=== PATIENT | female | born 1950 | race Caucasian/White ===

== ENCOUNTER → 2016-07-01 | Outpatient (CLI) | payer BC, OTHER ==
[~2016-07-01] MED LIST: AMITRIPTYLINE H25 M2 PO; APAP/CODEINE ELI5 M1 OR; APAP500 PO; BENTYL 10 MG CA10 M1 PO; CALCIUM 500+D1 EAC2 PO; EVISTA PO; FISH OIL 1,001000 M1 PO; IBUPROFEN 400400 M2 PO; IBUPROFEN 600600 M1 PO; IBUPROFEN200 M2 PO; LEVOTHROID; LEVOTHROID150 MC1 PO; LEVOTHYROXIN0.112 M1 PO; LIPITOR20 MG PO; LORTAB 5-325 M1 EACH PO; METHOCARBAMOL500 M1 PO; MIRAPEX; MIRAPEX0.25 MG PO; MULTIVITAMINS PO; NORCO 5-325 TA1 EACH PO; NORCO 7.5-3251 EACH PO; NORVASC10 MG PO; PHENERGAN 25 MG25 M1 PO; PROTONIX 20 MG20 M1 PO; TRAMADOL 50 MG50 MG PO; ULTRAM 50MG TAB50 MG PO; VITAMINC500 PO; ZOFRAN ODT8 MG PO; ZOFRAN4 MG PO; ZPAK PO
== END ==
LOC: RAD 10:28
DX: R06.02 Shortness of breath (principal)

== ENCOUNTER 2016-08-20 13:30 | Emergency (ER) | payer BC, OTHER ==
[~2016-08-20] VITALS: Ht 157.5 cm; Wt 90.7 kg
--- NOTE | ~2016-08-20 | EKG ---
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
--- NOTE | ~2016-08-20 | EKG ---
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
[2016-08-20 14:35] LABS: ABSOLUTE NEUTROPHILS 3.5 thou/uL (1.4-8.2); BASOPHILS 0.8 % (0.0-2.0); EOSINOPHILS 2.7 % (0.0-3.0); HEMATOCRIT 37.3 % (37.0-47.0); HEMOGLOBIN 12.6 gm/dL (12.0-15.0); LYMPHOCYTES 36.7 % (24.0-44.0); MCH 30.7 pg (26.0-34.0); MCHC 33.7 g/dL (28.0-37.0); MCV 91.2 fL (80.0-100.0); MONOCYTES 5.8 % (1.0-8.0); PLATELET COUNT 282 thou/uL (150-400); RBC 4.09 mil/uL (4.20-5.00); RDW 13.5 % (10.5-14.5); WBC 6.5 thou/uL (4.0-11.0)
[2016-08-20 14:39] LABS: MANUAL DIFF NO
[2016-08-20 14:44] LABS: ANION GAP 5 mmol/L (7-16); BUN 14 mg/dL (7-18); CALCIUM 9.3 mg/dL (8.5-10.1); CHLORIDE 106 mmol/L (98-107); CO2 30 mmol/L (21-32); CREATININE 0.8 mg/dL (0.6-1.3); GLUCOSE 101 mg/dL (70-99); POTASSIUM 4.4 mmol/L (3.5-5.1); SODIUM 141 mmol/L (136-145)
[2016-08-20 14:55] LABS: ALBUMIN 3.9 g/dL (3.4-5.0); ALKALINE PHOSPHATASE 113 U/L (46-116); MAGNESIUM 2.2 mg/dL (1.8-2.4); NT-PRO BRAIN NAT PEPTIDE 154 pg/mL (<300); SGOT 18 U/L (15-37); SGPT 22 U/L (30-65); TOTAL BILIRUBIN 0.2 mg/dL (<0.1-1.0); TOTAL PROTEIN 7.2 g/dL (6.4-8.2); TROPONIN-I < 0.04 ng/mL (<0.04-0.07)
== END 2016-08-20 16:22 | disposition home or self-care (01) ==
LOC: ER 13:30
PROVIDERS: Nurse Practitioner Family
DX: R07.9 Chest pain, unspecified (principal); I10 Essential (primary) hypertension; K58.8 Other irritable bowel syndrome; E78.5 Hyperlipidemia, unspecified; E03.9 Hypothyroidism, unspecified; K21.9 Gastro-esophageal reflux disease without esophagitis; G43.909 Migraine, unspecified, not intractable, without status migrainosus; Z88.8 Allergy status to other drugs, medicaments and biological substances; Z88.5 Allergy status to narcotic agent

== ENCOUNTER → 2017-03-24 | Outpatient (CLI) | payer OTHER | LOC: RAD 00:15 | DX: Z12.31 Encounter for screening mammogram for malignant neoplasm of breast (principal) ==

== ENCOUNTER → 2017-06-01 | Outpatient (CLI) | payer OTHER | LOC: RAD 12:21 | DX: M47.896 Other spondylosis, lumbar region (principal); M25.561 Pain in right knee ==

== ENCOUNTER → 2017-06-22 | Outpatient (CLI) | payer OTHER ==
[~2017-06-22] MED LIST changes: +CARAFATE 1 GM TA1 G1 PO; +FISH OIL 1,001000 M2 PO; +MELOXICAM15 MG PO; +MIRAPEX 0.250.25 M1 PO; +PEPCID20 MG PO; +PROTONIX40 MG PO; +RANITIDINE 150150 M1 PO; +TIROSINT112 MCG PO; +TYLENOL325 MG PO; +VENTOLIN HFA 1818 GM INH; +VITAMIN D31000 UNIT PO
== END ==
LOC: RAD 14:01
DX: R05 Cough (principal); R06.02 Shortness of breath

== ENCOUNTER 2017-07-11 09:17 | Emergency (ER) | payer OTHER ==
[~2017-07-11] VITALS: Ht 157.5 cm; Wt 92.5 kg
[~2017-07-11 09:17] MED LIST changes: -CARAFATE 1 GM TA1 G1 PO; -FISH OIL 1,001000 M2 PO; -MELOXICAM15 MG PO; -MIRAPEX 0.250.25 M1 PO; -PEPCID20 MG PO; -PROTONIX40 MG PO; -RANITIDINE 150150 M1 PO; -TIROSINT112 MCG PO; -TYLENOL325 MG PO; -VENTOLIN HFA 1818 GM INH; -VITAMIN D31000 UNIT PO
[2017-07-11 09:55] VITALS: BP 179/77
[2017-10-10] MEDS ORDERED: TIROSINT112 MCG PO (10:38)
[2017-10-10] MEDS ORDERED: MIRAPEX 0.250.25 M1 PO (10:39)
[2017-10-10] MEDS ORDERED: MELOXICAM15 MG PO (10:40)
[2017-10-10] MEDS ORDERED: VITAMIN D31000 UNIT PO (10:41)
[2017-10-10] MEDS ORDERED: FISH OIL 1,001000 M2 PO (10:41)
[2017-10-10] MEDS ORDERED: RANITIDINE 150150 M1 PO (10:43)
[2018-01-06] MEDS ORDERED: VENTOLIN HFA 1818 GM INH (11:12)
[2018-01-06] MEDS ORDERED: TYLENOL325 MG PO (11:13)
== END 2017-07-11 11:00 | disposition home or self-care (01) ==
LOC: ER 09:17
DX: M25.561 Pain in right knee (principal); I10 Essential (primary) hypertension; M19.90 Unspecified osteoarthritis, unspecified site; E78.5 Hyperlipidemia, unspecified; E03.9 Hypothyroidism, unspecified; G43.909 Migraine, unspecified, not intractable, without status migrainosus; Z90.710 Acquired absence of both cervix and uterus; Z90.49 Acquired absence of other specified parts of digestive tract; Z88.8 Allergy status to other drugs, medicaments and biological substances; Z88.5 Allergy status to narcotic agent

== ENCOUNTER → 2017-08-22 | Outpatient (CLI) | payer OTHER ==
[~2017-08-22] MED LIST changes: +CARAFATE 1 GM TA1 G1 PO; +FISH OIL 1,001000 M2 PO; +MELOXICAM15 MG PO; +MIRAPEX 0.250.25 M1 PO; +PEPCID20 MG PO; +PROTONIX40 MG PO; +RANITIDINE 150150 M1 PO; +TIROSINT112 MCG PO; +TYLENOL325 MG PO; +VENTOLIN HFA 1818 GM INH; +VITAMIN D31000 UNIT PO
== END ==
LOC: MRI 10:36
DX: S83.271A Complex tear of lateral meniscus, current injury, right knee, initial encounter (principal); M22.41 Chondromalacia patellae, right knee; X58.XXXA Exposure to other specified factors, initial encounter; Y93.89 Activity, other specified; Y92.89 Other specified places as the place of occurrence of the external cause; Y99.8 Other external cause status

== ENCOUNTER 2017-10-14 05:26 | Day surgery (SDC) | payer OTHER ==
[~2017-10-14] VITALS: Ht 157.5 cm; Wt 92.5 kg
--- NOTE | ~2017-10-14 | O ---
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 PROCEDURES PERFORMED: Right knee arthroscopy, partial medial and lateral meniscectomy and chondroplasty of the patellofemoral and lateral compartments. SURGEON: Shamar Beltran M.D. ANESTHESIA: General per LMA. FLUIDS: 600 mL crystalloid. TOURNIQUET TIME: Approximately 18 minutes at 300 mmHg. ESTIMATED BLOOD LOSS: Less than 5 mL. DESCRIPTION OF PROCEDURE: After proper identification of the patient and operative site in the preoperative holding area, the operative site was signed by myself. Prophylactic antibiotics were given. The patient elected to receive general anesthesia per LMA. After satisfactory induction of general anesthesia, the right and left knees were examined. Mild effusion was noted. They were stable throughout a full arc of motion and comparable to the preoperative assessment. Tourniquet was applied to the upper thigh. Limb was sterilely prepped and draped in the usual manner as well as was placed in an arthroscopic leg gomes. The limb was sterilely prepped and draped in the usual manner, elevated and exsanguinated with an Esmarch. Tourniquet was inflated to 300 mmHg. A superior medial portal was created for inflow purposes. Joint was inflated by gravity inflow with normal saline. An anterolateral and then an anteromedial portal were created using a spinal needle for localization. Examination of the suprapatellar pouch, medial and lateral gutters revealed some mild synovitis, some grade 2 fibrillation and fraying of the lateral patellar facet, extending up to the central ridge of the patella was noted. This was debrided with a motorized shaver and was superficial in nature, occupied less [address] [address] OPERATIVE REPORT Name: ALY DONALDSON Room #: 150-2 [facility] Gayathri#: [id number] Admission: 10/14/17 Attend Phys: Shamar Alegria Discharge: Date of : 48 Report #: [id number] than 50% of the chondral thickness. Medial compartment of the knee revealed a complex tear of the posterior horn of the medial meniscus. Combination of hand and motorized instrumentation was used to perform a partial medial meniscectomy. Chondral surfaces were otherwise intact. The remaining meniscus was stable to probing. Anterior and posterior cruciate ligaments were intact and stable to probing. Lateral compartment of the knee revealed a complex tear of the lateral meniscus, involving the posterior horn, mid body and anterior horn. A combination of hand and motorized instrumentation was used to perform a partial lateral meniscectomy back to a stable peripheral rim. More degenerative appearance of the anterior horn was noted. There was some mild superficial chondral flaps and fraying noted along the more lateral aspect of the lateral femoral condyle and this was carefully debrided. The knee was thoroughly irrigated with normal saline. Portals closed with simple nylon stitch. A 20 mL of 0.2% Naropin was injected to aid in postoperative pain control. Sterile compressive dressing was applied. The patient was awakened and transferred to the recovery room in stable condition. By: 0828 1136 Shamar Beltran MD /bernadette
--- NOTE | ~2017-10-14 | EKG ---
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1950 Requested By: Shamar Beltran Order Number: [id number] MD: Antoine Perdue Measurements Intervals [place] Rate: 87 P: 25 MS: 200 QRS: -18 QRSD: 101 T: 34 QT: 411 QTc: 495 Interpretive Statements Sinus rhythm Borderline left axis deviation Compared to ECG 08/20/2016 13:41:37 No significant changes Electronically Signed On 10-14-2017 8:53:45 CDT by Antoine Perdue [email or web address] <ELECTRONICALLY SIGNED> By: Antoine Perdue MD, [facility] 10/14/17 0853 7 Antoine Perdue MD, [facility] /EPI
[~2017-10-14 05:26] MED LIST changes: -CARAFATE 1 GM TA1 G1 PO; -PEPCID20 MG PO; -PROTONIX40 MG PO; -TYLENOL325 MG PO; -VENTOLIN HFA 1818 GM INH
[2017-10-14 07:00] VITALS: BP 144/85
== END 2017-10-14 09:45 | disposition home or self-care (01) ==
LOC: OR 05:26 → TBA 05:28 → OR 08:50
DX: S83.271A Complex tear of lateral meniscus, current injury, right knee, initial encounter (principal); S83.231A Complex tear of medial meniscus, current injury, right knee, initial encounter; M94.261 Chondromalacia, right knee; I10 Essential (primary) hypertension; E78.00 Pure hypercholesterolemia, unspecified; E03.9 Hypothyroidism, unspecified; G43.909 Migraine, unspecified, not intractable, without status migrainosus; K21.9 Gastro-esophageal reflux disease without esophagitis; M19.90 Unspecified osteoarthritis, unspecified site; Z90.710 Acquired absence of both cervix and uterus; Z98.890 Other specified postprocedural states; Z86.59 Personal history of other mental and behavioral disorders; Z87.891 Personal history of nicotine dependence; Z87.19 Personal history of other diseases of the digestive system; Z88.8 Allergy status to other drugs, medicaments and biological substances; Z79.899 Other long term (current) drug therapy; Z90.49 Acquired absence of other specified parts of digestive tract; X58.XXXA Exposure to other specified factors, initial encounter; Y93.89 Activity, other specified; Y92.89 Other specified places as the place of occurrence of the external cause; Y99.8 Other external cause status
CPT/HCPCS: 50010; 50101

== ENCOUNTER 2017-12-11 11:44 | Inpatient (IN) | payer OTHER ==
[~2017-12-11] VITALS: Ht 157.5 cm; Wt 90.7 kg
--- NOTE | ~2017-12-11 | 2DMMODE ---
[facility] [address] [place] [address] 2 D/M-MODE ECHOCARDIOGRAM Name: ALY DONALDSON Room #: 458-P ADM IN M.R.#: [id number] Admission: 12/11/17 Attend Phys: Fer Moreau MD Discharge: Date of : 48 Date of Service: 12/12/17 0939 Report #: [id number] THIS REPORT FOR: //name// APPROVED REPORT Study performed: 12/12/2017 08:32:46 EXAM: Comprehensive 2D, Doppler, and color-flow Echocardiogram Patient Location: Bedside Room #: [facility] Status: routine BSA: 1.91 HR: 74 bpm BP: 117/60 mmHg Other Information Study Quality: Adequate Indications Chest Pain Hypertension/HDD 2D Dimensions RVDd: 33.11 mm LVEF(%): 40.66 (>50%) IVSd: 13.64 (7-11mm) LVOT Diam: 18.71 (18-24mm) LVDd: 45.28 mm PWd: 14.24 (7-11mm) Ascending Ao: 27.80 (22-36mm) LVDs: 36.34 (25-40mm) Aortic Root: 27.47 mm IVC: 14.00 mm Shah's LVEF: 40.66 % Volumes Left Atrial Volume (Systole) Single Plane 4CH: 31.09 mL Single Plane 2CH: 42.79 mL LA ESV Index: 21.00 mL/m2 Aortic Valve AoV Peak Jeff.: 2.04 m/s AO Peak Gr.: 16.61 mmHg LVOT Max P.80 mmHg AO Mean Gr.: 8.47 mmHg LVOT Mean P.15 mmHg AO V2 Mean: 1.36 m/s LVOT Max V: 1.20 m/s AO V2 VTI: 40.62 cm LVOT Mean V: 0.81 m/s CHARLES (VTI): 1.93 cm2 LVOT V1 VTI: 28.56 cm CHARLES Vmax: 1.62 cm2 SV (LVOT): 78.51 mL [facility] [employer] 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 Time: 273.58 ms MV E Max Jeff.: 0.81 m/s MV A Jeff.: 1.35 m/s MV PHT: 79.34 ms IVRT: 124.57 ms Pulmonary Valve PV Peak Jeff.: 1.13 m/s PV Peak Gr.: 5.10 mmHg Pulmonary Vein P Vein S: 0.51 m/s P Vein A: 0.23 m/s P Vein D: 0.31 m/s P Vein S/D Ratio: 1.65 Tricuspid Valve TR Peak Jeff.: 2.47 m/s RAP Estimate: 5.00 mmHg TR Peak Gr.: 24.38 mmHg PA Pressure: 29.00 mmHg Left Ventricle The left ventricle is normal size. Mild concentric left ventricular hypertrophy. Left ventricular systolic function is borderline. LVEF is 50%. Mild diastolic dysfunction is present (impaired relaxation pattern). Right Ventricle The right ventricle is normal size. The right ventricular systolic function is normal. Atria The left atrium size is normal. The right atrium size is normal. Aortic Valve The Aortic valve is sclerotic. No aortic regurgitation is present. There is no aortic valvular stenosis. Mitral Valve The mitral valve is normal in structure. Mild to moderate mitral regurgitation. No evidence of mitral valve stenosis. Tricuspid Valve The tricuspid valve is normal in structure[place] [address] 2 D/M-MODE ECHOCARDIOGRAM Name: ALY DONALDSON Room #: 458-P [facility] IN M.R.#: [id number] Admission: 12/11/17 Attend Phys: Fer Moreau MD Discharge: Date of : 48 Date of Service: 12/12/17 0939 Report #: [id number] regurgitation. PAP is estimated at 29 mmHg. Pulmonic Valve The pulmonary valve is normal in structure. Trace pulmonic regurgitation. Great Vessels The aortic root is normal in size. IVC is normal in size and collapses >50% with inspiration. Pericardium There is no pericardial effusion. <Conclusion> The left ventricle is normal size. Mild concentric left ventricular hypertrophy. Left ventricular systolic function is borderline. Mild diastolic dysfunction is present (impaired relaxation pattern). The right ventricle is normal size. The left atrium size is normal. The Aortic valve is sclerotic. Mild to moderate mitral regurgitation. Mild tricuspid regurgitation. PAP is estimated at 29 mmHg. <ELECTRONICALLY SIGNED> By: Jorje Bridges MD 12/12/17938 8 8 Jorje Bridges MD /INF
--- NOTE | ~2017-12-11 | EKG ---
[address] [address] [facility] [place] [address] ELECTROCARDIOGRAM REPORT Name: ALY DONALDSON Room #: 458-P ADM IN M.R.#: [id number] Admission: 12/11/17 Attend Phys: Fer Moreau MD Discharge: Date of : 48 Report #: [id number] THIS REPORT FOR: //name// 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1950 Requested By: Emelia Cook Order Number: [id number] MD: Antoine Perdue Measurements Intervals [place] Rate: 84 P: -23 [place]: 182 QRS: -16 QRSD: 98 T: 8 QT: 393 QTc: 465 Interpretive Statements Sinus rhythm No significant abnormality Compared to ECG 10/14/2017 06:48:30 No significant changes Electronically Signed On 12-11-2017 14:12:43 CDT by Antoine Perdue [email or web address] <ELECTRONICALLY SIGNED> By: Antoine Perdue MD, [facility] 12/11/17 1412 1154 1154 Antoine Perdue MD, [facility] /EPI
[2017-12-11 11:52] VITALS: BP 162/87
[2017-12-11 12:08] LABS: ABSOLUTE NEUTROPHILS 4.8 thou/uL (1.4-8.2); BASOPHILS 0.9 % (0.0-2.0); EOSINOPHILS 1.8 % (0.0-3.0); HEMATOCRIT 40.4 % (37.0-47.0); HEMOGLOBIN 13.9 gm/dL (12.0-15.0); LYMPHOCYTES 28.3 % (24.0-44.0); MCH 31.4 pg (26.0-34.0); MCHC 34.3 g/dL (28.0-37.0); MCV 91.4 fL (80.0-100.0); MONOCYTES 6.1 % (1.0-8.0); PLATELET COUNT 250 thou/uL (150-400); POLYS 62.9 % (36.0-66.0); RBC 4.42 mil/uL (4.20-5.00); RDW 12.8 % (10.5-14.5); WBC 7.7 thou/uL (4.0-11.0)
[2017-12-11] MEDS ORDERED: TRAMADOL 50 MG50 MG PO (12:09)
[2017-12-11 12:16] LABS: ANION GAP 7 mmol/L (7-16); BUN 19 mg/dL (7-18); CALCIUM 9.3 mg/dL (8.5-10.1); CHLORIDE 103 mmol/L (98-107); CO2 29 mmol/L (21-32); CREATININE 0.8 mg/dL (0.6-1.0); GLUCOSE 102 mg/dL (74-106); POTASSIUM 4.5 mmol/L (3.5-5.1); SODIUM 139 mmol/L (136-145)
[2017-12-11 12:25] LABS: TROPONIN-I <0.06 ng/mL (<0.06)
[2017-12-11 13:13] VITALS: BP 138/68
[2017-12-11 13:29] VITALS: BP 132/71
[2017-12-11 13:56] VITALS: BP 137/67
[2017-12-11 16:00] VITALS: BP 126/57
[2017-12-11 19:42] VITALS: BP 108/73
[2017-12-12 04:24] VITALS: BP 117/60
[2017-12-12 05:49] LABS: HEMATOCRIT 38.3 % (37.0-47.0); HEMOGLOBIN 13.1 gm/dL (12.0-15.0); MCH 31.4 pg (26.0-34.0); MCHC 34.1 g/dL (28.0-37.0); RBC 4.16 mil/uL (4.20-5.00); RDW 12.7 % (10.5-14.5); WBC 7.1 thou/uL (4.0-11.0)
[2017-12-12 06:13] LABS: ANION GAP 9 mmol/L (7-16); BUN 16 mg/dL (7-18); CALCIUM 8.9 mg/dL (8.5-10.1); CHLORIDE 105 mmol/L (98-107); CHOLESTEROL 168 mg/dL (<200); CO2 26 mmol/L (21-32); CREATININE 0.8 mg/dL (0.6-1.0); GLUCOSE 95 mg/dL (74-106); HDL CHOLESTEROL 44 mg/dL (>40); LDL CHOLESTEROL 100 mg/dL (<100); POTASSIUM 4.3 mmol/L (3.5-5.1); SODIUM 140 mmol/L (136-145); TC:HDL 3.8 Ratio (Not establshd); TRIGLYCERIDE 121 mg/dL (<150); TROPONIN-I <0.06 ng/mL (<0.06); VLDL 24 mg/dL (<40)
[2017-12-12 06:15] LABS: SERUM ASSESSMENT Clear
[2017-12-12 08:00] VITALS: BP 140/67
[2017-12-12 13:14] VITALS: BP 125/61
[2017-12-12] MEDS ORDERED: PEPCID20 MG PO (16:34)
[2017-12-12 16:43] VITALS: BP 125/61
== END 2017-12-12 17:10 | disposition home or self-care (01) | DRG 206 ==
LOC: ER 11:44 → EROBS 13:13 → 4W 13:13 → ENTRNSPT 12-12 16:57 → 4W 12-12 17:10
PROVIDERS: Emergency Medicine; Hospitalist
DX: M94.0 Chondrocostal junction syndrome [Tietze] (principal); R07.89 Other chest pain; K21.9 Gastro-esophageal reflux disease without esophagitis; I10 Essential (primary) hypertension; M19.90 Unspecified osteoarthritis, unspecified site; E78.5 Hyperlipidemia, unspecified; E03.9 Hypothyroidism, unspecified; G43.909 Migraine, unspecified, not intractable, without status migrainosus; F32.9 Major depressive disorder, single episode, unspecified; G62.9 Polyneuropathy, unspecified; F41.9 Anxiety disorder, unspecified; Z87.891 Personal history of nicotine dependence; K58.9 Irritable bowel syndrome, unspecified; G25.81 Restless legs syndrome; Z82.49 Family history of ischemic heart disease and other diseases of the circulatory system; Z80.1 Family history of malignant neoplasm of trachea, bronchus and lung; Z90.710 Acquired absence of both cervix and uterus; Z90.49 Acquired absence of other specified parts of digestive tract; Z88.6 Allergy status to analgesic agent; Z88.8 Allergy status to other drugs, medicaments and biological substances; Z79.899 Other long term (current) drug therapy; Z82.0 Family history of epilepsy and other diseases of the nervous system
CPT/HCPCS: 10047

== ENCOUNTER 2017-12-19 11:43 | Emergency (ER) | payer OTHER ==
[~2017-12-19] VITALS: Ht 157.5 cm; Wt 86.2 kg
--- NOTE | ~2017-12-19 | EKG ---
[place] [address] [facility] [place] [address] ELECTROCARDIOGRAM REPORT Name: ALY DONALDSON [facility]: 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
[~2017-12-19 11:43] MED LIST changes: +PEPCID20 MG PO
[2017-12-19 12:05] LABS: URINE BILIRUBIN NEGATIVE (Negative); URINE BLOOD NEGATIVE (Negative); URINE CLARITY CLEAR; URINE COLOR YELLOW; URINE GLUCOSE-RANDOM* NEGATIVE (Negative); URINE KETONES NEGATIVE (Negative); URINE LEUKOCYTES-REFLEX NEGATIVE (Negative); URINE NITRITE-REFLEX NEGATIVE (Negative); URINE PROTEIN (DIPSTICK) NEGATIVE (Negative); URINE SPECIFIC GRAVITY 1.015 (1.005-1.035); URINE UROBILINOGEN 0.2 E.U./dl (0.2-1.0)
[2017-12-19 12:25] LABS: ABSOLUTE NEUTROPHILS 5.3 thou/uL (1.4-8.2); HEMATOCRIT 42.8 % (37.0-47.0); HEMOGLOBIN 14.9 gm/dL (12.0-15.0); LYMPHOCYTES 27.8 % (24.0-44.0); MCH 31.5 pg (26.0-34.0); MCHC 34.9 g/dL (28.0-37.0); MCV 90.3 fL (80.0-100.0); MONOCYTES 5.8 % (1.0-8.0); PLATELET COUNT 269 thou/uL (150-400); POLYS 64.4 % (36.0-66.0); RBC 4.74 mil/uL (4.20-5.00); RDW 12.5 % (10.5-14.5); WBC 8.3 thou/uL (4.0-11.0)
[2017-12-19 12:31] LABS: CALCIUM 10.2 mg/dL (8.5-10.1); CREATININE 0.9 mg/dL (0.6-1.0); POTASSIUM 4.3 mmol/L (3.5-5.1)
[2017-12-19 12:36] LABS: ALBUMIN 4.3 g/dL (3.4-5.0); TOTAL BILIRUBIN 0.4 mg/dL (<0.1-1.0); TOTAL PROTEIN 8.4 g/dL (6.4-8.2)
[2017-12-19] MEDS ORDERED: PROTONIX40 MG PO (14:10)
[2017-12-19] MEDS ORDERED: ZOFRAN4 MG PO (14:10)
[2017-12-19] MEDS ORDERED: ULTRAM 50MG TAB50 MG PO (14:10)
[2017-12-19] MEDS ORDERED: CARAFATE 1 GM TA1 G1 PO (14:10)
== END 2017-12-19 14:30 | disposition home or self-care (01) ==
LOC: ER 11:43
PROVIDERS: Emergency Medicine
DX: K29.70 Gastritis, unspecified, without bleeding (principal); R42 Dizziness and giddiness; I10 Essential (primary) hypertension; E78.5 Hyperlipidemia, unspecified; E03.9 Hypothyroidism, unspecified; M19.90 Unspecified osteoarthritis, unspecified site; K21.9 Gastro-esophageal reflux disease without esophagitis; F41.9 Anxiety disorder, unspecified; F32.9 Major depressive disorder, single episode, unspecified; G43.909 Migraine, unspecified, not intractable, without status migrainosus; Z90.710 Acquired absence of both cervix and uterus; Z88.8 Allergy status to other drugs, medicaments and biological substances

== ENCOUNTER → 2018-01-11 | Outpatient (CLI) | payer OTHER ==
[~2018-01-11] VITALS: Ht 157.5 cm; Wt 83.9 kg
[~2018-01-11] MED LIST changes: +CARAFATE 1 GM TA1 G1 PO; +PROTONIX40 MG PO; +TYLENOL325 MG PO; +VENTOLIN HFA 1818 GM INH
--- NOTE | ~2018-01-11 | PATH ---
[facility] [address] [address] PATHOLOGY RPT PROCEDURE Name: NANCIE DONALDSON Room #: REG Anuradha SandyYfnTim.#: [id number] Admission: 01/11/18 Date of : 48 Discharge: Report #: [id number] Path Case #: [id number] [facility] Accession Number: [id number] . 01 Material submitted: . PART A: BIOPSY OF DUODENUM R/O SPRUE PART B: BIOPSY OF GASTRITIS PART C: BIOPSY OF DISTAL ESOPHAGUS R/O BARRETTS . 01 Clinical history: . Pre-Op DX: Abdominal pain Post-Op DX: Nausea, abdominal pain, gastritis . 02 Diagnosis: A. Small bowel mucosa, duodenum, rule out sprue, endoscopic biopsy: - No diagnostic abnormalities present. - Negative for villous blunting or increase in intraepithelial lymphocytes. . B. Gastric mucosa, gastritis, endoscopic biopsy: - Mild chronic active gastritis showing features of reactive gastropathy. - Negative for intestinal metaplasia or atrophy. - Negative for Helicobacter pylori (properly-controlled immunohistochemical stain performed). . C. Gastroesophageal mucosa, distal esophagus, rule out Vee's, endoscopic biopsy: - Gastric cardia-type mucosa with mild chronic active inflammation. - Negative for intestinal metaplasia or dysplasia. - Squamous mucosa with mild esophagitis and changes compatible with reflux esophagitis. . (IUV:mml; 01/12/18) [facility]/01/12/2018 . 02 Electronically signed: . Rubi Wilkins MD, Pathologist NPI- [id number] . 01 Gross description: . A. Received in formalin labeled "Nancie Donaldson BX of duodenum, rule out sprue," are 4 segments of hua soft tissue measuring 1.3 x 0.7 x 0.2 cm in aggregate dimensions and ranging from 0.3 to 0.4 cm in maximum dimension. The specimen is submitted entirely in cassette A1. . B. Received in formalin labeled "Nancie Donaldson BX gastritis," are 3 segments of hua soft tissue measuring 0.8 x 0.8 x 0.2 cm in aggregate [address] [address] PATHOLOGY RPT PROCEDURE Name: NANCIE DONALDSON Room #: REG CLAnuradha Trinh#: [id number] Admission: 01/11/18 Date of : 48 Discharge: Report #: [id number] Path Case #: [id number] dimensions and ranging from 0.2 to 0.7 cm in maximum dimension. The specimen is submitted entirely in cassette B1. . C. Received in formalin labeled "Nancie Donaldson, BX distal esophagus, rule out Vee's," are 2 segments of hua soft tissue measuring 0.7 x 0.3 x 0.2 cm in aggregate dimensions and ranging from 0.3 to 0.4 cm in maximum dimension. The specimen is submitted entirely in cassette C1. (TSD; 01/11/2018) TOB/TOB . 02 Pathologist provided ICD-10: K29.50, K31.9, K21.0 . 02 CPT . 134828, 556455, 023733 Performed at: [address], [place] [id number] MD Norberto Toure MD Phone: [phone] Performed at: [address], [place] [id number] MD Rubi Wilkins MD Phone: [phone]
--- NOTE | ~2018-01-11 | P ---
[facility] [place] [address] PROCEDURE REPORT Name: ALY DONALDSON Room #: REG [facility]#: [id number] Admission: 01/11/18 Attend Phys: Norman Hackett Discharge: Date of : 48 Report #: [id number] THIS REPORT FOR: //name// CC: Norman Crouch MD DATE OF SERVICE: 01/11/2018 PROCEDURE PERFORMED: Upper endoscopy with biopsies and bleeding control. HISTORY OF PRESENT ILLNESS: The patient is a 67-year-old female who complains of nausea and midepigastric abdominal pain as well as some heartburn. She denies any dysphagia. She is currently on Pepcid, which was recently started as well as Carafate. She denies any emesis. Bowel movements have been normal. She has had a previous cholecystectomy. Plan is for upper endoscopy. DESCRIPTION OF PROCEDURE: The risks and benefits of the procedure were explained to the patient, those risks including but not limited to bleeding, perforation, the risk of sedation. She understood these risks and gave informed consent. Sedation was given using propofol per anesthesia. Next, using a standard Olympus upper endoscope, the scope was placed in the patient's mouth and advanced under direct vision through the esophagus, stomach and into the second portion of the duodenum. The upper and mid esophagus were normal in appearance. A single pink mucosal tongue was noted extending above the GE junction. Biopsies were obtained to rule out the possibility of Vee's esophagus. There was mild diffuse gastritis. Biopsies obtained. One of the biopsy sites continued to have a small amount of oozing and bleeding. Therefore, this was injected with 1 mL of epinephrine. No further bleeding was noted. The gastric antrum and pylorus were normal. The duodenal bulb, first and second portion were all normal. Biopsies were also obtained to rule out the possibility of celiac sprue. The scope was then withdrawn and the procedure terminated. The patient tolerated the procedure well. IMPRESSION: 1. Mild gastritis. 2. Possible short segment Vee's esophagus. 3. Otherwise, normal upper endoscopy. RECOMMENDATIONS: 1. Await biopsy results. 2. Consider trial of PPI therapy in the future. 3. We will try Phenergan for nausea since Zofran has not been helpful. [facility] [address] [place] [address] PROCEDURE REPORT Name: ALY DONALDSON Room #: REG MIKE Trinh#: [id number] Admission: 01/11/18 Attend Phys: Norman Hackett Discharge: Date of : 48 Report #: [id number] Thank you for allowing me to participate in her care. <ELECTRONICALLY SIGNED> By: Norman Moore MD 01/13/18 1016 1139 0101 Norman Moore MD /nt
== END | disposition home or self-care (01) ==
LOC: GI 09:34
DX: K29.50 Unspecified chronic gastritis without bleeding (principal); K21.9 Gastro-esophageal reflux disease without esophagitis; K20.9 Esophagitis, unspecified; K31.9 Disease of stomach and duodenum, unspecified; I10 Essential (primary) hypertension; E78.5 Hyperlipidemia, unspecified; F32.9 Major depressive disorder, single episode, unspecified; F41.9 Anxiety disorder, unspecified; M19.90 Unspecified osteoarthritis, unspecified site; G43.909 Migraine, unspecified, not intractable, without status migrainosus; E03.9 Hypothyroidism, unspecified; Z87.01 Personal history of pneumonia (recurrent); Z98.890 Other specified postprocedural states; Z79.899 Other long term (current) drug therapy; Z87.891 Personal history of nicotine dependence; Z90.710 Acquired absence of both cervix and uterus; Z90.49 Acquired absence of other specified parts of digestive tract; Z98.1 Arthrodesis status; Z90.89 Acquired absence of other organs; Z88.8 Allergy status to other drugs, medicaments and biological substances; Z79.51 Long term (current) use of inhaled steroids
CPT/HCPCS: 62110; 62900

== ENCOUNTER → 2018-01-31 | Outpatient (CLI) | payer OTHER | LOC: CAT 09:07 | DX: N81.10 Cystocele, unspecified (principal); I10 Essential (primary) hypertension; E03.9 Hypothyroidism, unspecified; E78.5 Hyperlipidemia, unspecified; M19.90 Unspecified osteoarthritis, unspecified site; G43.909 Migraine, unspecified, not intractable, without status migrainosus ==

== ENCOUNTER → 2018-03-27 | Outpatient (CLI) | payer OTHER | LOC: RAD 01:35 | DX: Z12.31 Encounter for screening mammogram for malignant neoplasm of breast (principal) ==

== ENCOUNTER 2018-04-19 19:51 | Emergency (ER) | payer OTHER ==
[~2018-04-19] VITALS: Ht 157.5 cm; Wt 86.2 kg
[2018-04-19] MEDS ORDERED: SERTRALINE HCL50 MG PO (20:24)
[2018-04-19 20:51] LABS: ABSOLUTE NEUTROPHILS 5.1 thou/uL (1.4-8.2); EOSINOPHILS 1.8 % (0.0-3.0); HEMATOCRIT 37.8 % (37.0-47.0); HEMOGLOBIN 12.9 gm/dL (12.0-15.0); LYMPHOCYTES 32.6 % (24.0-44.0); MCH 31.1 pg (26.0-34.0); MCHC 34.1 g/dL (28.0-37.0); MCV 91.3 fL (80.0-100.0); MONOCYTES 6.4 % (1.0-8.0); PLATELET COUNT 253 thou/uL (150-400); POLYS 58.2 % (36.0-66.0); RBC 4.14 mil/uL (4.20-5.00); RDW 13.5 % (10.5-14.5); WBC 8.8 thou/uL (4.0-11.0)
[2018-04-19 20:52] LABS: URINE BILIRUBIN NEGATIVE (Negative); URINE BLOOD NEGATIVE (Negative); URINE CLARITY CLEAR; URINE COLOR YELLOW; URINE GLUCOSE-RANDOM* NEGATIVE (Negative); URINE KETONES NEGATIVE (Negative); URINE NITRITE-REFLEX NEGATIVE (Negative); URINE PROTEIN (DIPSTICK) NEGATIVE (Negative); URINE UROBILINOGEN 0.2 E.U./dl (0.2-1.0)
[2018-04-19 20:53] LABS: URINE LEUKOCYTES-REFLEX TRACE (Negative)
[2018-04-19 20:56] LABS: CALCIUM 9.2 mg/dL (8.5-10.1); CREATININE 0.7 mg/dL (0.6-1.0); POTASSIUM 3.3 mmol/L (3.5-5.1)
[2018-04-19 21:00] LABS: ALBUMIN 3.6 g/dL (3.4-5.0); TOTAL BILIRUBIN 0.2 mg/dL (<0.1-1.0); TOTAL PROTEIN 7.2 g/dL (6.4-8.2)
[2018-04-19] MEDS ORDERED: PYRIDIUM100 M1 PO (22:20)
[2018-04-19] MEDS ORDERED: CIPROFLOXACIN500 M1 PO (22:20)
[2018-04-19] MEDS ORDERED: ULTRAM 50MG TAB50 MG PO (22:41)
[2018-04-19 22:45] VITALS: BP 138/62
== END 2018-04-19 22:45 | disposition home or self-care (01) ==
LOC: ER 19:51
PROVIDERS: Emergency Medicine
DX: N39.0 Urinary tract infection, site not specified (principal); R19.7 Diarrhea, unspecified; I10 Essential (primary) hypertension; M19.90 Unspecified osteoarthritis, unspecified site; E78.5 Hyperlipidemia, unspecified; E03.9 Hypothyroidism, unspecified; K21.9 Gastro-esophageal reflux disease without esophagitis; G43.909 Migraine, unspecified, not intractable, without status migrainosus; Z88.8 Allergy status to other drugs, medicaments and biological substances; Z90.710 Acquired absence of both cervix and uterus; Z90.49 Acquired absence of other specified parts of digestive tract; Z79.899 Other long term (current) drug therapy

== ENCOUNTER 2018-08-21 11:43 | Emergency (ER) | payer OTHER ==
[~2018-08-21] VITALS: Ht 157.5 cm; Wt 84.8 kg
[~2018-08-21 11:43] MED LIST changes: +CIPROFLOXACIN500 M1 PO; +PYRIDIUM100 M1 PO; +SERTRALINE HCL50 MG PO
[2018-08-21 13:33] LABS: URINE BILIRUBIN NEGATIVE (Negative); URINE BLOOD NEGATIVE (Negative); URINE CLARITY CLEAR; URINE COLOR YELLOW; URINE GLUCOSE-RANDOM* NEGATIVE (Negative); URINE KETONES NEGATIVE (Negative); URINE LEUKOCYTES-REFLEX NEGATIVE (Negative); URINE NITRITE-REFLEX NEGATIVE (Negative); URINE PROTEIN (DIPSTICK) NEGATIVE (Negative); URINE SPECIFIC GRAVITY <= 1.005 (1.005-1.035); URINE UROBILINOGEN 0.2 E.U./dl (0.2-1.0)
[2018-08-21 15:56] LABS: ABSOLUTE NEUTROPHILS 3.6 thou/uL (1.4-8.2); BASOPHILS 0.8 % (0.0-2.0); HEMOGLOBIN 12.5 gm/dL (12.0-15.0); LYMPHOCYTES 32.1 % (24.0-44.0); MCH 30.6 pg (26.0-34.0); MCHC 33.9 g/dL (28.0-37.0); MCV 90.3 fL (80.0-100.0); MONOCYTES 5.8 % (1.0-8.0); PLATELET COUNT 215 thou/uL (150-400); POLYS 59.3 % (36.0-66.0); WBC 6.1 thou/uL (4.0-11.0)
[2018-08-21 16:07] LABS: ANION GAP 10 mmol/L (7-16); BUN 16 mg/dL (7-18); CALCIUM 8.9 mg/dL (8.5-10.1); CHLORIDE 108 mmol/L (98-107); CO2 26 mmol/L (21-32); CREATININE 0.7 mg/dL (0.6-1.0); GLUCOSE 149 mg/dL (74-106); POTASSIUM 3.3 mmol/L (3.5-5.1); SODIUM 144 mmol/L (136-145)
[2018-08-21 16:16] LABS: ALBUMIN 3.5 g/dL (3.4-5.0); DIRECT BILIRUBIN < 0.1 mg/dL (<0.1-0.3); LIPASE 64 U/L (73-393); SGOT 17 U/L (15-37); SGPT 16 U/L (30-65); TOTAL BILIRUBIN 0.2 mg/dL (<0.1-1.0); TOTAL PROTEIN 6.7 g/dL (6.4-8.2); TROPONIN-I <0.06 ng/mL (<0.06)
--- NOTE | 2018-08-21 17:11 | EKG ---
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1950 Requested By: Parth Schuster Order Number: [id number] MD: Antoine Perdue Measurements Intervals [place] Rate: 84 P: 68 [place]: 222 QRS: -11 QRSD: 101 T: 11 QT: 389 QTc: 460 Interpretive Statements Sinus rhythm Prolonged [place] interval Borderline T wave abnormalities Compared to ECG 12/19/2017 12:10:03 T-wave abnormality now present Electronically Signed On 08-21-2018 17:11:18 CDT by Antoine Perdue [email or web address] ��������������������������������������������� <ELECTRONICALLY SIGNED> ���������������������������������������� By: Antoine Perdue MD, [facility] ��������������������������������������������� 08/21/18 1711 D: 03/1202 120 Antoine Perdue MD, FACC /EPI
[2018-08-21 17:58] VITALS: BP 107/58
== END 2018-08-21 17:58 | disposition home or self-care (01) ==
LOC: ER 11:43
PROVIDERS: Emergency Medicine
DX: E16.2 Hypoglycemia, unspecified (principal); R55 Syncope and collapse; R10.84 Generalized abdominal pain; I10 Essential (primary) hypertension; M19.90 Unspecified osteoarthritis, unspecified site; E78.5 Hyperlipidemia, unspecified; E03.9 Hypothyroidism, unspecified; K21.9 Gastro-esophageal reflux disease without esophagitis; G43.909 Migraine, unspecified, not intractable, without status migrainosus; F32.9 Major depressive disorder, single episode, unspecified; F41.9 Anxiety disorder, unspecified; Z88.5 Allergy status to narcotic agent; Z90.710 Acquired absence of both cervix and uterus; Z90.49 Acquired absence of other specified parts of digestive tract; Z98.890 Other specified postprocedural states; Z88.8 Allergy status to other drugs, medicaments and biological substances

== ENCOUNTER → 2018-08-30 | Outpatient (CLI) | payer OTHER ==
[~2018-08-30] VITALS: Ht 157.5 cm; Wt 84.8 kg
[~2018-08-30] MED LIST changes: +HYOSCYAMINE0.125 MG PO
--- NOTE | 2018-09-04 08:40 | P ---
[facility] [place] [address] PROCEDURE REPORT Name: ALY DONALDSON [facility] #: [facility] [id number] Admission: 08/30/18 ������������������ Attend Phys: Norman Hacktet Discharge: ������������������ Date of : 48 Report #: [id number] THIS REPORT FOR: //name// CC: Norman Crouch MD DATE OF SERVICE: 08/30/2018 PROCEDURE PERFORMED: Colonoscopy with polypectomies and biopsies. HISTORY OF PRESENT ILLNESS: The patient is a 68-year-old female with her last office visit on 07/11/2018 with complaints of intermittent abdominal pain as well as diarrhea and fecal urgency. She does have 3 loose bowel movements on a daily basis. Denies any blood in her stools. Last colonoscopy 5 years ago in which a tubular adenoma was removed. Previous upper endoscopy was negative for H. pylori, celiac sprue. The patient had tried probiotics without any improvement. We tried Levsin after her office visit, which she said did not help. No family history of colon cancer. DESCRIPTION OF PROCEDURE: The risks and benefits of the procedure were explained to the patient, those risks including but not limited to bleeding, perforation and the risk of sedation. She understood these risks and gave informed consent. Sedation was given using propofol per Anesthesia. Next, a digital rectal exam was initially performed, which was normal. Next, using a standard Olympus colonoscope, the scope was placed in the patient's anus and advanced under direct vision to the cecum. The overall prep was good. In the cecum, there was a 3 mm sessile polyp. This was removed with cold forceps, otherwise normal. The ileocecal valve was normal. The terminal ileum was intubated and normal in appearance. The ascending and transverse colon were normal. Random biopsies were obtained to rule out microscopic colitis. In the descending colon, 2 polyps were noted. A smaller was 5 mm in size and removed by cold forceps; the larger was 7 mm and removed by snare cautery. A few scattered diverticula were noted in the sigmoid colon, no evidence of inflammation, otherwise normal. The rectal mucosa was normal. No other abnormalities were noted. The scope was then withdrawn and the procedure terminated. The patient tolerated the procedure well. IMPRESSION: 1. Small colonic polyps as described above. 2. Sigmoid diverticulosis without inflammation. 3. Otherwise, normal colonoscopy. RECOMMENDATIONS: 1. Await biopsy results to rule out microscopic colitis. 2. We will discuss further options with the patient. Consider trial of [address] [address] PROCEDURE REPORT Name: ALY DONALDSON Room #: REG Anuradha Trinh#: [id number] Admission: 08/30/18 ������������������ Attend Phys: Norman Hackett Discharge: ������������������ Date of : 48 Report #: [id number] as she continues to have abdominal pain and diarrhea, which may be secondary to irritable bowel or consider Questran. Thank you for allowing me to participate in her care. ��������������������������������������������� <ELECTRONICALLY SIGNED> ���������������������������������������� By: Norman Moore MD ��������������������������������������������� 09/04/18 0840 1120 2030 Norman Moore MD /nt
--- NOTE | 2018-09-04 12:05 | PATH ---
[facility] [place] [address] PATHOLOGY RPT PROCEDURE Name: NANCIE DONALDSON Room #: REG Anuradha M.R.#: [id number] ������������������ Admission: 08/30/18 ������������������ Date of : 48 Discharge: Report #: [id number] Path Case #: [id number] [facility] Accession Number: [id number] . 01 Material submitted: . PART A: BIOPSY OF POLYP AT CECUM PART B: RANDOM BIOPSY OF COLON R/O MICROSCOPIC COLITIS PART C: BIOPSY OF POLYP AT DESCENDING COLON . 01 Clinical history: . Preop DX: Hx of polyps, abd pain, diarrhea Postop DX: Colon polyps, abd pain, diarrhea B. R/O microscopic colitis . 02 Diagnosis: A. Polyp, at cecum, endoscopic biopsy: - Inflammatory polyp with hyperplastic changes. - Negative for dysplasia or malignancy. . B. Large intestine mucosa, random colon rule out microscopic colitis, endoscopic biopsy: - Rare focus of acute cryptitis, please see comment. - Negative for dysplasia or malignancy. . C. Polyp, at descending colon, endoscopic biopsy: - Multiple fragments of tubular adenoma. - Negative for high-grade dysplasia. . (IUV:eric; 09/01/2018) MBR/09/01/2018 . 02 Comment: Examination shows a rare focus of cryptitis with occasional eosinophils within the lamina propria. The lamina propria cellularity is mixed and is comprised of lymphocytes, plasma cells, as well as eosinophils. Reactive changes are identified in the surface epithelium as well. There are no viral inclusions or granulomata present. These findings may be due to bowel preparation, a resolved/resolving episode of acute colitis, chronic diverticulitis, as well as medication-induced colitis. There is no dysplasia or malignancy present. Please correlate clinically. (IUV:medical advisor; 09/01/2018) . 02 Electronically signed: . Rubi Wilkins MD, Pathologist NPI- [id number] . 01 Gross description: . [address] [address] PATHOLOGY RPT PROCEDURE Name: NANCIE DONALDSON Room #: REG [facility] [id number] ������������������ Admission: 08/30/18 ������������������ Date of : 48 Discharge: Report #: [id number] Path Case #: [id number] A. Received in formalin labeled "Nancie Donaldson, BX polyp at cecum," are four segments of hua soft tissue measuring 0.5 x 0.4 x 0.2 cm in aggregate dimensions and ranging from 0.1 to 0.4 cm in maximum dimension. The specimen is submitted entirely in cassette A1. The smallest segments may not survive processing. . B. Received in formalin labeled "Nancie Donaldson, random BX colon R/O microscopic colitis," are four segments of pale hua soft tissue measuring 0.8 x 0.7 x 0.2 cm in aggregate dimensions and ranging from 0.4 to 0.5 cm in maximum dimension. The specimen is submitted entirely in cassette B1. . C. Received in formalin labeled "Nancie Donaldson, BX of polyp at descending colon x2," are five segments of hua-brown soft tissue measuring 0.8 x 0.7 x 0.3 cm in aggregate dimensions and ranging from 0.3 to 0.6 cm in maximum dimension. The largest segment is inked and bisected, and the specimen is submitted entirely in cassette C1. (DAC; 08/31/2018) XDC/XDC . 02 Pathologist provided ICD-10: K63.5, K62.89, D12.4 . 02 CPT . 993217, 797955, 497672 Specimen Comment: A courtesy copy of this report has been sent to Specimen Comment: [phone], . Specimen Comment: Report sent to / DR COOL Performed at: [address], [place] [id number] MD Norberto Toure MD Phone: [phone] Performed at: [address] [id number] MD Rubi Wilkins MD Phone: [phone]
== END | disposition home or self-care (01) ==
LOC: GI 08:56
DX: K63.5 Polyp of colon (principal); D12.3 Benign neoplasm of transverse colon; K62.89 Other specified diseases of anus and rectum; K57.30 Diverticulosis of large intestine without perforation or abscess without bleeding; K21.9 Gastro-esophageal reflux disease without esophagitis; I10 Essential (primary) hypertension; E78.5 Hyperlipidemia, unspecified; E03.9 Hypothyroidism, unspecified; F32.9 Major depressive disorder, single episode, unspecified; F41.9 Anxiety disorder, unspecified; M19.90 Unspecified osteoarthritis, unspecified site; G43.909 Migraine, unspecified, not intractable, without status migrainosus; Z87.19 Personal history of other diseases of the digestive system; Z90.49 Acquired absence of other specified parts of digestive tract; Z86.010 Personal history of colon polyps; Z87.891 Personal history of nicotine dependence; Z90.710 Acquired absence of both cervix and uterus; Z98.890 Other specified postprocedural states; Z79.899 Other long term (current) drug therapy; Z88.8 Allergy status to other drugs, medicaments and biological substances
CPT/HCPCS: 62110; 62900

== ENCOUNTER → 2019-01-08 | Outpatient (CLI) | payer OTHER | LOC: NUC 08:55 | DX: M85.89 Other specified disorders of bone density and structure, multiple sites (principal); M81.0 Age-related osteoporosis without current pathological fracture; Z78.0 Asymptomatic menopausal state ==

== ENCOUNTER 2019-02-13 11:33 | Emergency (ER) | payer OTHER ==
[~2019-02-13] VITALS: Ht 157.5 cm; Wt 82.6 kg
[2019-02-13 11:54] LABS: ABSOLUTE NEUTROPHILS 4.4 thou/uL (1.4-8.2); BASOPHILS 1.4 % (0.0-2.0); EOSINOPHILS 2.3 % (0.0-3.0); HEMATOCRIT 39.8 % (37.0-47.0); LYMPHOCYTES 35.5 % (24.0-44.0); MCHC 32.6 g/dL (28.0-37.0); MONOCYTES 6.6 % (1.0-8.0); POLYS 54.2 % (36.0-66.0); RBC 4.19 mil/uL (4.20-5.00); RDW 13.8 % (10.5-14.5); WBC 8.6 thou/uL (4.0-11.0)
[2019-02-13 11:58] LABS: ANION GAP 8 mmol/L (7-16); BUN 11 mg/dL (7-18); CHLORIDE 107 mmol/L (98-107); CO2 25 mmol/L (21-32); CREATININE 0.7 mg/dL (0.6-1.0); GLUCOSE 93 mg/dL (74-106); POTASSIUM 3.8 mmol/L (3.5-5.1); SODIUM 140 mmol/L (136-145)
[2019-02-13 12:08] LABS: ALBUMIN 3.6 g/dL (3.4-5.0); SGOT 13 U/L (15-37); SGPT 12 U/L (30-65); TOTAL BILIRUBIN 0.3 mg/dL (<0.1-1.0); TOTAL PROTEIN 7.2 g/dL (6.4-8.2); TROPONIN-I <0.06 ng/mL (<0.06)
[2019-02-13 12:23] LABS: PLATELET COUNT 249 thou/uL (150-400); PLATELET ESTIMATE NORMAL
[2019-02-13] MEDS ORDERED: MOBIC15 MG PO (14:03)
[2019-02-13] MEDS ORDERED: ZANTAC 150MG T150 MG PO (14:03)
[2019-02-13 14:32] VITALS: BP 136/65
--- NOTE | 2019-02-14 08:02 | EKG ---
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: YADIRASELECT MEDICAL [facility] : 1950 Requested By: Baltazar Sahni Order Number: [id number] MD: Antoine Perdue Measurements Intervals [place] Rate: 83 P: 11 [place]: 193 QRS: -17 QRSD: 101 T: 1 QT: 373 QTc: 439 Interpretive Statements Sinus rhythm Borderline T wave abnormalities Compared to ECG 08/21/2018 12:03:17 No significant change was found Electronically Signed On 02-14-2019 8:02:06 CDT by Antoine Perdue [email or web address] ��������������������������������������������� <ELECTRONICALLY SIGNED> ���������������������������������������� By: Antoine Perdue MD, [facility] ��������������������������������������������� 02/14/19 0802 1134 1134 Antoine Perdue MD, [facility] /EPI
== END 2019-02-13 14:32 | disposition home or self-care (01) ==
LOC: ER 11:33
PROVIDERS: Emergency Medicine
DX: R07.89 Other chest pain (principal); I10 Essential (primary) hypertension; K58.9 Irritable bowel syndrome, unspecified; M19.90 Unspecified osteoarthritis, unspecified site; E03.9 Hypothyroidism, unspecified; E78.5 Hyperlipidemia, unspecified; G43.909 Migraine, unspecified, not intractable, without status migrainosus; F32.9 Major depressive disorder, single episode, unspecified; K21.9 Gastro-esophageal reflux disease without esophagitis; F41.9 Anxiety disorder, unspecified; Z90.710 Acquired absence of both cervix and uterus; Z90.49 Acquired absence of other specified parts of digestive tract; Z90.89 Acquired absence of other organs; Z98.890 Other specified postprocedural states; Z88.5 Allergy status to narcotic agent; Z88.8 Allergy status to other drugs, medicaments and biological substances

== ENCOUNTER → 2019-03-28 | Outpatient (CLI) | payer OTHER ==
[~2019-03-28] MED LIST changes: +MOBIC15 MG PO; +ZANTAC 150MG T150 MG PO
== END ==
LOC: RAD 00:50
DX: Z12.31 Encounter for screening mammogram for malignant neoplasm of breast (principal)

== ENCOUNTER 2019-05-05 13:01 | Emergency (ER) | payer OTHER ==
[~2019-05-05] VITALS: Ht 157.5 cm; Wt 86.2 kg
[2019-05-05 13:26] LABS: EOSINOPHILS 2.3 % (0.0-3.0); HEMATOCRIT 42.2 % (37.0-47.0); HEMOGLOBIN 14.2 gm/dL (12.0-15.0); LYMPHOCYTES 42.3 % (24.0-44.0); MCHC 33.6 g/dL (28.0-37.0); MCV 92.4 fL (80.0-100.0); MONOCYTES 5.4 % (1.0-8.0); PLATELET COUNT 266 thou/uL (150-400); RBC 4.56 mil/uL (4.20-5.00); RDW 12.8 % (10.5-14.5); WBC 6.2 thou/uL (4.0-11.0)
[2019-05-05 13:34] LABS: ANION GAP 11 mmol/L (7-16); BUN 19 mg/dL (7-18); CALCIUM 9.5 mg/dL (8.5-10.1); CHLORIDE 107 mmol/L (98-107); CO2 25 mmol/L (21-32); CREATININE 0.7 mg/dL (0.6-1.0); GLUCOSE 115 mg/dL (74-106); POTASSIUM 3.9 mmol/L (3.5-5.1); SODIUM 143 mmol/L (136-145)
[2019-05-05 13:44] LABS: ALBUMIN 3.9 g/dL (3.4-5.0); SGOT 16 U/L (15-37); SGPT 21 U/L (30-65); TOTAL BILIRUBIN 0.3 mg/dL (<0.1-1.0); TOTAL PROTEIN 7.8 g/dL (6.4-8.2); TROPONIN-I <0.06 ng/mL (<0.06)
[2019-05-05 15:08] LABS: URINE BILIRUBIN NEGATIVE (Negative); URINE BLOOD NEGATIVE (Negative); URINE CLARITY CLEAR; URINE COLOR YELLOW; URINE GLUCOSE-RANDOM* NEGATIVE (Negative); URINE KETONES NEGATIVE (Negative); URINE LEUKOCYTES-REFLEX NEGATIVE (Negative); URINE NITRITE-REFLEX NEGATIVE (Negative); URINE PROTEIN (DIPSTICK) NEGATIVE (Negative); URINE UROBILINOGEN 0.2 E.U./dl (0.2-1.0)
[2019-05-05 15:55] VITALS: BP 130/64
--- NOTE | 2019-05-05 21:53 | EKG ---
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: DELONTE : 1950 Requested By: Emelia Cook Order Number: [id number] MD: nAtoine Perdue Measurements Intervals [place] Rate: 81 P: 17 NE: 193 QRS: -1 QRSD: 97 T: 28 QT: 385 QTc: 447 Interpretive Statements Sinus rhythm Nonspecific T wave abnormality Compared to ECG 02/13/2019 11:34:51 No significant changes Electronically Signed On 05-05-2019 21:53:32 BUSINESS PROGRAMMER by Antoine Perdue [email or web address] <ELECTRONICALLY SIGNED> By: Antoine Perdue MD, [facility] 05/05/19 2153 1303 1303 Antoine Perdue MD, FACC /EPI
== END 2019-05-05 16:12 | disposition home or self-care (01) ==
LOC: ER 13:01
PROVIDERS: Emergency Medicine
DX: G43.909 Migraine, unspecified, not intractable, without status migrainosus (principal); R10.13 Epigastric pain; R13.10 Dysphagia, unspecified; I10 Essential (primary) hypertension; E78.5 Hyperlipidemia, unspecified; E03.9 Hypothyroidism, unspecified; K58.9 Irritable bowel syndrome, unspecified; K21.9 Gastro-esophageal reflux disease without esophagitis; M19.90 Unspecified osteoarthritis, unspecified site; F41.9 Anxiety disorder, unspecified; F32.9 Major depressive disorder, single episode, unspecified; Z90.710 Acquired absence of both cervix and uterus; Z90.49 Acquired absence of other specified parts of digestive tract; Z88.6 Allergy status to analgesic agent; Z88.8 Allergy status to other drugs, medicaments and biological substances

== ENCOUNTER 2019-11-18 09:46 | Emergency (ER) | payer OTHER ==
[~2019-11-18] VITALS: Ht 157.5 cm; Wt 81.7 kg
[2019-11-18 10:32] LABS: ABSOLUTE NEUTROPHILS 2.8 thou/uL (1.4-8.2); BASOPHILS 0.8 % (0.0-2.0); EOSINOPHILS 2.8 % (0.0-3.0); HEMATOCRIT 38.5 % (37.0-47.0); HEMOGLOBIN 13.1 gm/dL (12.0-15.0); LYMPHOCYTES 36.2 % (24.0-44.0); MCH 31.9 pg (26.0-34.0); MCHC 33.9 g/dL (28.0-37.0); MONOCYTES 7.1 % (1.0-8.0); PLATELET COUNT 237 thou/uL (150-400); POLYS 53.1 % (36.0-66.0); RBC 4.09 mil/uL (4.20-5.00); RDW 13.8 % (10.5-14.5); WBC 5.2 thou/uL (4.0-11.0)
[2019-11-18 10:32] LABS: URINE BILIRUBIN NEGATIVE (Negative); URINE BLOOD NEGATIVE (Negative); URINE CLARITY CLEAR; URINE COLOR YELLOW; URINE GLUCOSE-RANDOM* NEGATIVE (Negative); URINE KETONES NEGATIVE (Negative); URINE LEUKOCYTES-REFLEX NEGATIVE (Negative); URINE NITRITE-REFLEX NEGATIVE (Negative); URINE PROTEIN (DIPSTICK) NEGATIVE (Negative); URINE UROBILINOGEN 0.2 E.U./dl (0.2-1.0)
[2019-11-18 10:33] LABS: SSA (PROTEIN CONFIRMATORY) NEGATIVE (Negative)
[2019-11-18 10:43] LABS: CALCIUM 8.3 mg/dL (8.5-10.1); CREATININE 0.8 mg/dL (0.6-1.0); POTASSIUM 4.1 mmol/L (3.5-5.1)
[2019-11-18 10:50] LABS: ALBUMIN 3.6 g/dL (3.4-5.0); TOTAL BILIRUBIN 0.4 mg/dL (0.2-1.0); TOTAL PROTEIN 6.9 g/dL (6.4-8.2)
[2019-11-18] MEDS ORDERED: ZOFRAN ODT4 MG PO ×2 (13:17→13:30)
[2019-11-18 13:21] VITALS: BP 118/49
--- NOTE | 2019-11-19 07:41 | EKG ---
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: RADHA : 1950 Requested By: Parth Schuster Order Number: [id number] MD: Antoine Perdue Measurements Intervals [place] Rate: 82 P: -18 MS: 202 QRS: -11 QRSD: 98 T: 28 QT: 406 QTc: 475 Interpretive Statements Sinus rhythm Normal tracing Compared to ECG 05/05/2019 13:03:37 T-wave abnormality no longer present Electronically Signed On 11-19-2019 7:39:59 CDT by Antoine Perdue [email or web address] <ELECTRONICALLY SIGNED> By: Antoine Perdue MD, [facility] 11/19/19 0739 0955 0955 Antoine Perdue MD, [facility] /EPI
== END 2019-11-18 13:39 | disposition home or self-care (01) ==
LOC: ER 09:46
PROVIDERS: Emergency Medicine
DX: R10.84 Generalized abdominal pain (principal); R11.2 Nausea with vomiting, unspecified; R06.02 Shortness of breath; M54.9 Dorsalgia, unspecified; R07.9 Chest pain, unspecified; I10 Essential (primary) hypertension; M19.90 Unspecified osteoarthritis, unspecified site; E78.5 Hyperlipidemia, unspecified; E03.9 Hypothyroidism, unspecified; G43.909 Migraine, unspecified, not intractable, without status migrainosus; F32.9 Major depressive disorder, single episode, unspecified; F41.9 Anxiety disorder, unspecified; K21.9 Gastro-esophageal reflux disease without esophagitis; Z90.49 Acquired absence of other specified parts of digestive tract; Z90.711 Acquired absence of uterus with remaining cervical stump; Z90.89 Acquired absence of other organs; Z79.899 Other long term (current) drug therapy; Z88.8 Allergy status to other drugs, medicaments and biological substances; Z88.6 Allergy status to analgesic agent

== ENCOUNTER 2019-11-22 17:05 | Emergency (ER) | payer OTHER ==
[~2019-11-22] VITALS: Ht 157.5 cm; Wt 81.7 kg
[~2019-11-22 17:05] MED LIST changes: +ZOFRAN ODT4 MG PO
[2019-11-22 18:35] LABS: URINE BILIRUBIN NEGATIVE (Negative); URINE BLOOD 2+ (Negative); URINE CLARITY CLEAR; URINE COLOR YELLOW; URINE GLUCOSE-RANDOM* NEGATIVE (Negative); URINE KETONES NEGATIVE (Negative); URINE LEUKOCYTES-REFLEX 1+ (Negative); URINE NITRITE-REFLEX NEGATIVE (Negative); URINE PROTEIN (DIPSTICK) NEGATIVE (Negative); URINE UROBILINOGEN 0.2 E.U./dl (0.2-1.0)
[2019-11-22 18:42] LABS: BACTERIA-REFLEX >30 Many /HPF (None Seen); CASTS None Seen /LPF (None Seen); CRYSTALS None Seen /LPF (None Seen); SQUAMOUS 4-10 Moderate /LPF (0-3); URINE RBC 3-10 Few /HPF (0-2)
[2019-11-22 18:44] LABS: URINE WBC-REFLEX 6-15 Few /HPF (0-5); YEAST-REFLEX Present (None Seen)
[2019-11-22 19:46] LABS: ABSOLUTE NEUTROPHILS 10.6 thou/uL (1.4-8.2); BASOPHILS 0.6 % (0.0-2.0); EOSINOPHILS 0.6 % (0.0-3.0); HEMATOCRIT 43.3 % (37.0-47.0); HEMOGLOBIN 14.8 gm/dL (12.0-15.0); LYMPHOCYTES 15.5 % (24.0-44.0); MCH 31.9 pg (26.0-34.0); MCHC 34.1 g/dL (28.0-37.0); MCV 93.6 fL (80.0-100.0); MONOCYTES 4.1 % (1.0-8.0); PLATELET COUNT 293 thou/uL (150-400); POLYS 79.2 % (36.0-66.0); RBC 4.63 mil/uL (4.20-5.00); WBC 13.4 thou/uL (4.0-11.0)
[2019-11-22 20:21] LABS: ALBUMIN 4.2 g/dL (3.4-5.0); CALCIUM 9.4 mg/dL (8.5-10.1); CREATININE 0.9 mg/dL (0.6-1.0); POTASSIUM 4.2 mmol/L (3.5-5.1); TOTAL BILIRUBIN 0.5 mg/dL (0.2-1.0); TOTAL PROTEIN 8.1 g/dL (6.4-8.2)
[2019-11-22] MEDS ORDERED: KEFLEX500 M1 PO (20:28)
[2019-11-22] MEDS ORDERED: ANUSOL-HC25 MG RECTAL (20:28)
[2019-11-22] MEDS ORDERED: PROBIOTIC1 EAC7 PO (20:28)
[2019-11-22 20:56] VITALS: BP 134/57
== END 2019-11-22 20:54 | disposition home or self-care (01) ==
LOC: ER 17:05
PROVIDERS: Nurse Practitioner Family
DX: K62.89 Other specified diseases of anus and rectum (principal); N39.0 Urinary tract infection, site not specified; K59.00 Constipation, unspecified; I10 Essential (primary) hypertension; E78.5 Hyperlipidemia, unspecified; G43.909 Migraine, unspecified, not intractable, without status migrainosus; F32.9 Major depressive disorder, single episode, unspecified; Z79.899 Other long term (current) drug therapy; Z88.5 Allergy status to narcotic agent; Z88.8 Allergy status to other drugs, medicaments and biological substances; Z90.89 Acquired absence of other organs; Z90.49 Acquired absence of other specified parts of digestive tract; Z90.710 Acquired absence of both cervix and uterus

== ENCOUNTER 2019-12-29 03:26 | Emergency (ER) | payer OTHER ==
[~2019-12-29] VITALS: Ht 157.5 cm; Wt 81.7 kg
[~2019-12-29 03:26] MED LIST changes: +ANUSOL-HC25 MG RECTAL; +KEFLEX500 M1 PO; +PROBIOTIC1 EAC7 PO
[2019-12-29] MEDS ORDERED: BENTYL 10 MG CA10 M1 PO (03:45)
[2019-12-29] MEDS ORDERED: ZOLOFT50 M1 PO (03:45)
[2019-12-29 04:02] LABS: URINE BILIRUBIN NEGATIVE (Negative); URINE BLOOD 3+ (Negative); URINE CLARITY SL CLOUDY; URINE COLOR YELLOW; URINE GLUCOSE-RANDOM* NEGATIVE (Negative); URINE KETONES NEGATIVE (Negative); URINE PROTEIN (DIPSTICK) 2+ (Negative)
[2019-12-29 04:07] LABS: URINE LEUKOCYTES-REFLEX 3+ (Negative); URINE NITRITE-REFLEX POSITIVE (Negative)
[2019-12-29 04:44] LABS: CASTS None Seen /LPF (None Seen); MUCUS 0-3 Light strn/LPF (None Seen); SQUAMOUS None Seen /LPF (0-3); URINE WBC-REFLEX >25 Many /HPF (0-5)
[2019-12-29 04:45] LABS: BACTERIA-REFLEX >30 Many /HPF (None Seen); CRYSTALS None Seen /LPF (None Seen); URINE RBC >20 Many /HPF (0-2); WBC CLUMPS Many (None Seen)
[2019-12-29] MEDS ORDERED: KEFLEX500 M1 PO ×2 (04:54→05:20)
[2019-12-29] MEDS ORDERED: PYRIDIUM100 M1 PO (05:25)
[2019-12-29 05:45] VITALS: BP 118/62
== END 2019-12-29 05:30 | disposition home or self-care (01) ==
LOC: ER 03:26
PROVIDERS: Emergency Medicine
DX: N39.0 Urinary tract infection, site not specified (principal); I10 Essential (primary) hypertension; K21.9 Gastro-esophageal reflux disease without esophagitis; E78.5 Hyperlipidemia, unspecified; E03.9 Hypothyroidism, unspecified; G43.909 Migraine, unspecified, not intractable, without status migrainosus; Z90.49 Acquired absence of other specified parts of digestive tract; Z90.710 Acquired absence of both cervix and uterus; Z90.89 Acquired absence of other organs; Z79.899 Other long term (current) drug therapy; Z88.8 Allergy status to other drugs, medicaments and biological substances

== ENCOUNTER → 2020-01-30 | Outpatient (CLI) | payer OTHER ==
[~2020-01-30] MED LIST changes: +ZOLOFT50 M1 PO
== END ==
LOC: NUC 10:27
PROVIDERS: ATTEND Neuromusculoskeletal Medicine & OMM
DX: M85.88 Other specified disorders of bone density and structure, other site (principal); M81.0 Age-related osteoporosis without current pathological fracture

== ENCOUNTER → 2020-04-01 | Outpatient (CLI) | payer OTHER | LOC: BC 10:53 | PROVIDERS: ATTEND Neuromusculoskeletal Medicine & OMM | DX: Z12.31 Encounter for screening mammogram for malignant neoplasm of breast (principal) ==

== ENCOUNTER 2020-06-25 11:09 | Emergency (ER) | payer OTHER ==
[~2020-06-25] VITALS: Ht 157.5 cm; Wt 81.7 kg
[2020-06-25 12:14] LABS: ABSOLUTE NEUTROPHILS 3.9 thou/uL (1.4-8.2); EOSINOPHILS 2.5 % (0.0-3.0); HEMATOCRIT 40.8 % (37.0-47.0); LYMPHOCYTES 26.6 % (24.0-44.0); MCHC 31.9 g/dL (28.0-37.0); MONOCYTES 5.9 % (1.0-8.0); PLATELET COUNT 251 thou/uL (150-400); RBC 4.34 mil/uL (4.20-5.00); RDW 13.7 % (10.5-14.5); WBC 6.1 thou/uL (4.0-11.0)
[2020-06-25 12:28] LABS: ANION GAP 8 mmol/L (7-16); BUN 19 mg/dL (7-18); CALCIUM 8.9 mg/dL (8.5-10.1); CHLORIDE 106 mmol/L (98-107); CO2 30 mmol/L (21-32); CREATININE 0.7 mg/dL (0.6-1.0); GLUCOSE 105 mg/dL (74-106); POTASSIUM 3.6 mmol/L (3.5-5.1); SODIUM 144 mmol/L (136-145)
[2020-06-25 12:36] LABS: TROPONIN-I <0.06 ng/mL (<0.06)
[2020-06-25 13:16] VITALS: BP 132/61
--- NOTE | 2020-06-25 14:51 | EKG ---
[place] [address] [facility] [place] [address] ELECTROCARDIOGRAM REPORT Name: ALY DONALDSON [facility]: [facility] [id number] Admission: 06/25/20 Attend Phys: Discharge: 06/25/20 Date of : 48 Report #: [id number] [facility] ED Test Date: 2020-06-25 Test Time: 11:45:34 Pat Name: ALY DONALDSON Department: Room: Gender: F [place] Rafting Guide: davon : 1950 Requested By: Zach Marshall Order Number: [id number] MD: Viktor Dukes Measurements Intervals [place] Rate: 78 P: -12 [place]: 196 QRS: -15 QRSD: 103 T: -4 QT: 383 QTc: 437 Interpretive Statements Sinus rhythm Borderline left axis deviation Low voltage, precordial leads Borderline T abnormalities, diffuse leads Baseline wander in lead(s) III Compared to ECG 11/18/2019 09:55:09 Low QRS voltage now present T-wave abnormality now present Electronically Signed On 06-25-2020 14:51:18 TRANSFER TABLE OPERATOR by Viktor Dukes [email or web address] <ELECTRONICALLY SIGNED> By: Viktor Dukes MD, FAC 06/25/20 1451 1145 1145 Viktor Dukes MD, [facility] /EPI
== END 2020-06-25 13:16 | disposition home or self-care (01) ==
LOC: ER 11:09
PROVIDERS: Nurse Practitioner
DX: E03.9 Hypothyroidism, unspecified (principal); R07.89 Other chest pain; R06.02 Shortness of breath; R06.2 Wheezing; I10 Essential (primary) hypertension; M19.90 Unspecified osteoarthritis, unspecified site; E78.5 Hyperlipidemia, unspecified; K21.9 Gastro-esophageal reflux disease without esophagitis; G43.909 Migraine, unspecified, not intractable, without status migrainosus; F32.9 Major depressive disorder, single episode, unspecified; F41.9 Anxiety disorder, unspecified; Z20.822 Contact with and (suspected) exposure to COVID-19; Z90.711 Acquired absence of uterus with remaining cervical stump; Z90.49 Acquired absence of other specified parts of digestive tract; Z90.89 Acquired absence of other organs; Z98.890 Other specified postprocedural states; Z79.899 Other long term (current) drug therapy; Z79.2 Long term (current) use of antibiotics; Z88.8 Allergy status to other drugs, medicaments and biological substances

== ENCOUNTER 2020-10-01 07:35 | Emergency (ER) | payer OTHER ==
[~2020-10-01] VITALS: Ht 157.5 cm; Wt 86.2 kg
[2020-10-01] MEDS ORDERED: ALENDRONATE SOD70 MG PO (07:46)
[2020-10-01 08:13] LABS: URINE BILIRUBIN NEGATIVE (Negative); URINE BLOOD NEGATIVE (Negative); URINE CLARITY SL CLOUDY; URINE COLOR YELLOW; URINE GLUCOSE-RANDOM* NEGATIVE (Negative); URINE KETONES NEGATIVE (Negative); URINE PROTEIN (DIPSTICK) NEGATIVE (Negative); URINE SPECIFIC GRAVITY 1.015 (1.005-1.035); URINE UROBILINOGEN 0.2 E.U./dl (0.2-1.0)
[2020-10-01 08:25] LABS: ABSOLUTE NEUTROPHILS 4.9 thou/uL (1.4-8.2); EOSINOPHILS 1.2 % (0.0-3.0); HEMATOCRIT 38.2 % (37.0-47.0); HEMOGLOBIN 12.8 gm/dL (12.0-15.0); LYMPHOCYTES 23.4 % (24.0-44.0); MCH 31.1 pg (26.0-34.0); MCHC 33.4 g/dL (28.0-37.0); MCV 92.9 fL (80.0-100.0); MONOCYTES 8.1 % (1.0-8.0); PLATELET COUNT 241 thou/uL (150-400); POLYS 66.3 % (36.0-66.0); RBC 4.11 mil/uL (4.20-5.00); RDW 14.4 % (10.5-14.5); WBC 7.4 thou/uL (4.0-11.0)
[2020-10-01 08:34] LABS: URINE LEUKOCYTES-REFLEX 1+ (Negative); URINE NITRITE-REFLEX POSITIVE (Negative)
[2020-10-01 08:37] LABS: CALCIUM 8.8 mg/dL (8.5-10.1); CREATININE 0.8 mg/dL (0.6-1.0); POTASSIUM 3.9 mmol/L (3.5-5.1)
[2020-10-01 08:42] LABS: ALBUMIN 3.6 g/dL (3.4-5.0); TOTAL BILIRUBIN 0.4 mg/dL (0.2-1.0); TOTAL PROTEIN 7.4 g/dL (6.4-8.2)
[2020-10-01 08:45] LABS: CASTS None Seen /LPF (None Seen); CRYSTALS None Seen /LPF (None Seen); MUCUS 0-3 Light strn/LPF (None Seen); SQUAMOUS 4-10 Moderate /LPF (0-3)
[2020-10-01 08:47] LABS: URINE RBC None Seen /HPF (NONE SEEN); URINE WBC-REFLEX 0-5 Rare /HPF (0-5)
[2020-10-01] MEDS ORDERED: AUGMENTIN 875-1 EACH PO (09:39)
[2020-10-01 09:51] VITALS: BP 117/49
== END 2020-10-01 09:50 | disposition home or self-care (01) ==
LOC: ER 07:35
PROVIDERS: Emergency Medicine
DX: N39.0 Urinary tract infection, site not specified (principal); R10.32 Left lower quadrant pain; I10 Essential (primary) hypertension; M19.90 Unspecified osteoarthritis, unspecified site; G43.909 Migraine, unspecified, not intractable, without status migrainosus; Z88.8 Allergy status to other drugs, medicaments and biological substances; Z88.5 Allergy status to narcotic agent; Z79.899 Other long term (current) drug therapy; Z90.710 Acquired absence of both cervix and uterus

== ENCOUNTER 2020-11-17 05:35 | Emergency (ER) | payer OTHER ==
[~2020-11-17] VITALS: Ht 157.5 cm; Wt 86.2 kg
[~2020-11-17 05:35] MED LIST changes: +ALENDRONATE SOD70 MG PO; +AUGMENTIN 875-1 EACH PO
[2020-11-17 06:22] LABS: ABSOLUTE NEUTROPHILS 4.3 thou/uL (1.4-8.2); BASOPHILS 1.8 % (0.0-2.0); EOSINOPHILS 3.5 % (0.0-3.0); HEMATOCRIT 41.7 % (37.0-47.0); LYMPHOCYTES 29.9 % (24.0-44.0); MCH 30.9 pg (26.0-34.0); MCHC 33.5 g/dL (28.0-37.0); MCV 92.2 fL (80.0-100.0); PLATELET COUNT 254 thou/uL (150-400); POLYS 58.8 % (36.0-66.0); RBC 4.52 mil/uL (4.20-5.00); RDW 14.1 % (10.5-14.5); WBC 7.3 thou/uL (4.0-11.0)
[2020-11-17 06:37] LABS: CALCIUM 8.9 mg/dL (8.5-10.1); CREATININE 0.9 mg/dL (0.6-1.0); POTASSIUM 3.8 mmol/L (3.5-5.1)
[2020-11-17 06:43] LABS: ALBUMIN 3.7 g/dL (3.4-5.0); TOTAL BILIRUBIN 0.4 mg/dL (0.2-1.0); TOTAL PROTEIN 7.4 g/dL (6.4-8.2)
--- NOTE | 2020-11-17 07:24 | EKG ---
[facility] [place] [address] ELECTROCARDIOGRAM REPORT Name: ALY DONALDSON [facility]: [facility] [id number] Admission: 11/17/20 Attend Phys: Discharge: Date of : 48 Report #: [id number] [facility] ED Test Date: 2020-11-17 Test Time: 07:22:26 Pat Name: ALY DONALDSON Department: Room: Gender: F Country Manager: : 1950 Requested By: Aamir Gayle Order Number: [id number] MD: Viktor Dukes Measurements Intervals [place] Rate: 67 P: -6 ND: 168 QRS: -16 QRSD: 105 T: 1 QT: 417 QTc: 441 Interpretive Statements Sinus rhythm Ventricular premature complex Borderline left axis deviation Borderline T abnormalities, diffuse leads Compared to ECG 06/25/2020 11:45:34 Ventricular premature complex(es) now present T-wave abnormality still present Electronically Signed On 11-17-2020 7:24:22 CDT by Viktor Dukes [email or web address] <ELECTRONICALLY SIGNED> By: Viktor Dukes MD, [facility] 11/17/20723 1 1 Viktor Dukes MD, [facility] /EPI
[2020-11-17 07:54] LABS: URINE BILIRUBIN NEGATIVE (Negative); URINE BLOOD NEGATIVE (Negative); URINE CLARITY CLEAR; URINE COLOR YELLOW; URINE GLUCOSE-RANDOM* NEGATIVE (Negative); URINE KETONES NEGATIVE (Negative); URINE LEUKOCYTES-REFLEX NEGATIVE (Negative); URINE NITRITE-REFLEX NEGATIVE (Negative); URINE PROTEIN (DIPSTICK) NEGATIVE (Negative); URINE UROBILINOGEN 0.2 E.U./dl (0.2-1.0)
[2020-11-17] MEDS ORDERED: ZOFRAN ODT4 MG PO (08:28)
[2020-11-17] MEDS ORDERED: LEVSIN0.125 MG PO (08:28)
[2020-11-17 08:49] VITALS: BP 146/64
== END 2020-11-17 08:50 | disposition home or self-care (01) ==
LOC: ER 05:35
PROVIDERS: Emergency Medicine
DX: R10.32 Left lower quadrant pain (principal); I10 Essential (primary) hypertension; M19.90 Unspecified osteoarthritis, unspecified site; E03.9 Hypothyroidism, unspecified; G43.909 Migraine, unspecified, not intractable, without status migrainosus; Z88.8 Allergy status to other drugs, medicaments and biological substances; Z90.710 Acquired absence of both cervix and uterus; Z88.5 Allergy status to narcotic agent; Z79.899 Other long term (current) drug therapy

== ENCOUNTER 2021-01-06 11:18 | Emergency (ER) | payer OTHER ==
[~2021-01-06] VITALS: Ht 160 cm; Wt 79.4 kg
[~2021-01-06 11:18] MED LIST changes: +LEVSIN0.125 MG PO
[2021-01-06 11:55] LABS: ABSOLUTE NEUTROPHILS 3.8 thou/uL (1.4-8.2); BASOPHILS 0.8 % (0.0-2.0); EOSINOPHILS 1.7 % (0.0-3.0); HEMOGLOBIN 13.5 gm/dL (12.0-15.0); LYMPHOCYTES 28.2 % (24.0-44.0); MCH 31.6 pg (26.0-34.0); MCHC 33.7 g/dL (28.0-37.0); MCV 93.8 fL (80.0-100.0); MONOCYTES 6.1 % (1.0-8.0); PLATELET COUNT 253 thou/uL (150-400); POLYS 63.2 % (36.0-66.0); RBC 4.26 mil/uL (4.20-5.00); WBC 6.1 thou/uL (4.0-11.0)
[2021-01-06 12:03] LABS: ANION GAP 8 mmol/L (7-16); BUN 14 mg/dL (7-18); CALCIUM 8.8 mg/dL (8.5-10.1); CHLORIDE 106 mmol/L (98-107); CO2 27 mmol/L (21-32); CREATININE 0.8 mg/dL (0.6-1.0); GLUCOSE 98 mg/dL (74-106); POTASSIUM 3.8 mmol/L (3.5-5.1); SODIUM 141 mmol/L (136-145)
[2021-01-06 12:13] LABS: ALBUMIN 3.8 g/dL (3.4-5.0); MAGNESIUM 2.1 mg/dL (1.8-2.4); SGOT 12 U/L (15-37); SGPT 18 U/L (14-59); TOTAL BILIRUBIN 0.4 mg/dL (0.2-1.0); TOTAL PROTEIN 7.2 g/dL (6.4-8.2); TROPONIN-I <0.06 ng/mL (<0.06)
--- NOTE | 2021-01-06 13:08 | EKG ---
[facility] [place] [address] ELECTROCARDIOGRAM REPORT Name: ALY DONALDSON Room #: REG [facility]#: [id number] Admission: 01/06/21 Attend Phys: Discharge: Date of : 48 Report #: [id number] [facility] ED Test Date: 2021-01-06 Test Time: 11:22:00 Pat Name: ALY DONALDSON Department: Room: Gender: F Jet Inspector: KF : 1950 Requested By: Matthias Davila Order Number: [id number] MD: Viktor Dukes Measurements Intervals [place] Rate: 76 P: 11 AR: 190 QRS: -23 QRSD: 105 T: 3 QT: 399 QTc: 449 Interpretive Statements Sinus rhythm Borderline left axis deviation Borderline T abnormalities, anterior leads Baseline wander in lead(s) V6 Compared to ECG 11/17/2020 07:22:26 Ventricular premature complex(es) no longer present T-wave abnormality still present Electronically Signed On 01-06-2021 13:08:39 CDT by Viktor Dukes [email or web address] <ELECTRONICALLY SIGNED> By: Viktor Dukes MD, [facility] 01/06/21 1308 1122 1122 Viktor Dukes MD, [facility] /EPI
[2021-01-06 14:54] VITALS: BP 131/61
== END 2021-01-06 14:54 | disposition home or self-care (01) ==
LOC: ER 11:18
PROVIDERS: Emergency Medicine
DX: R07.89 Other chest pain (principal); I10 Essential (primary) hypertension; E78.5 Hyperlipidemia, unspecified; E03.9 Hypothyroidism, unspecified; K21.9 Gastro-esophageal reflux disease without esophagitis; G43.909 Migraine, unspecified, not intractable, without status migrainosus; F41.9 Anxiety disorder, unspecified; Z90.710 Acquired absence of both cervix and uterus; Z90.49 Acquired absence of other specified parts of digestive tract; Z98.890 Other specified postprocedural states; Z79.899 Other long term (current) drug therapy; Z79.891 Long term (current) use of opiate analgesic; Z88.8 Allergy status to other drugs, medicaments and biological substances

== ENCOUNTER 2021-03-30 10:32 | Emergency (ER) | payer OTHER ==
[~2021-03-30] VITALS: Ht 157.5 cm; Wt 84.4 kg
[2021-03-30 11:18] LABS: ABSOLUTE NEUTROPHILS 4.4 thou/uL (1.4-8.2); BASOPHILS 1.2 % (0.0-2.0); EOSINOPHILS 0.9 % (0.0-3.0); HEMATOCRIT 39.4 % (37.0-47.0); HEMOGLOBIN 13.2 gm/dL (12.0-15.0); LYMPHOCYTES 24.1 % (24.0-44.0); MCH 31.5 pg (26.0-34.0); MCHC 33.4 g/dL (28.0-37.0); MCV 94.3 fL (80.0-100.0); MONOCYTES 5.5 % (1.0-8.0); PLATELET COUNT 269 thou/uL (150-400); POLYS 68.3 % (36.0-66.0); RBC 4.18 mil/uL (4.20-5.00); RDW 13.3 % (10.5-14.5); WBC 6.4 thou/uL (4.0-11.0)
[2021-03-30 11:22] LABS: ANION GAP 8 mmol/L (7-16); BUN 13 mg/dL (7-18); CALCIUM 9.2 mg/dL (8.5-10.1); CHLORIDE 107 mmol/L (98-107); CO2 28 mmol/L (21-32); CREATININE 0.8 mg/dL (0.6-1.0); GLUCOSE 100 mg/dL (74-106); POTASSIUM 4.3 mmol/L (3.5-5.1); SODIUM 143 mmol/L (136-145)
[2021-03-30 11:24] LABS: URINE BILIRUBIN NEGATIVE (Negative); URINE BLOOD NEGATIVE (Negative); URINE CLARITY CLEAR; URINE COLOR YELLOW; URINE GLUCOSE-RANDOM* NEGATIVE (Negative); URINE KETONES NEGATIVE (Negative); URINE NITRITE-REFLEX NEGATIVE (Negative); URINE PROTEIN (DIPSTICK) NEGATIVE (Negative); URINE SPECIFIC GRAVITY 1.015 (1.005-1.035); URINE UROBILINOGEN 0.2 E.U./dl (0.2-1.0)
[2021-03-30 11:31] LABS: ALBUMIN 3.9 g/dL (3.4-5.0); DIRECT BILIRUBIN < 0.1 mg/dL (<0.1-0.2); LIPASE 36 U/L (73-393); SGOT 17 U/L (15-37); SGPT 20 U/L (30-65); TOTAL BILIRUBIN 0.4 mg/dL (0.2-1.0); TOTAL PROTEIN 7.6 g/dL (6.4-8.2)
[2021-03-30 11:34] LABS: URINE LEUKOCYTES-REFLEX 1+ (Negative)
[2021-03-30 12:34] LABS: CASTS None Seen /LPF (None Seen); CRYSTALS None Seen /LPF (None Seen); SQUAMOUS >10 Many /LPF (0-3); URINE WBC-REFLEX 6-15 Few /HPF (0-5)
[2021-03-30 12:35] LABS: URINE RBC None Seen /HPF (NONE SEEN)
[2021-03-30] MEDS ORDERED: KEFLEX250 MG PO (13:28)
[2021-03-30] MEDS ORDERED: ZOFRAN ODT4 MG PO (13:28)
[2021-03-30 13:34] VITALS: BP 150/73
--- NOTE | 2021-03-30 15:14 | EKG ---
[address] [place] [address] ELECTROCARDIOGRAM REPORT Name: ALY DONALDSON Room #: DEP [facility]#: [id number] Admission: 03/30/21 Attend Phys: Discharge: 03/30/21 Date of : 48 Report #: [id number] [facility] ED Test Date: 2021-03-30 Test Time: 11:04:36 Pat Name: ALY DONALDSON Department: Room: Gender: F Railroad Shop Inspector: GENEVIEVE : 1950 Requested By: Grant Rosado Order Number: [id number] MD: Viktor Dukes Measurements Intervals [place] Rate: 70 P: 55 MT: 207 QRS: -14 QRSD: 107 T: -21 QT: 408 QTc: 441 Interpretive Statements Sinus rhythm Borderline T abnormalities, diffuse leads Baseline wander in lead(s) II,III,aVR,aVF,V2,V6 Compared to ECG 01/06/2021 11:22:00 No significant changes Electronically Signed On 03-30-2021 15:14:17 CDT by Viktor Dukes [email or web address] <ELECTRONICALLY SIGNED> By: Viktor Dukes MD, FAC 03/30/21 1514 1104 1104 Viktor Dukes MD, [facility] /EPI
== END 2021-03-30 13:42 | disposition home or self-care (01) ==
LOC: ER 10:32
PROVIDERS: Student in an Organized Health Care Education/Training Program
DX: N39.0 Urinary tract infection, site not specified (principal); R11.0 Nausea; I10 Essential (primary) hypertension; M19.90 Unspecified osteoarthritis, unspecified site; E78.5 Hyperlipidemia, unspecified; E03.9 Hypothyroidism, unspecified; K21.9 Gastro-esophageal reflux disease without esophagitis; G43.909 Migraine, unspecified, not intractable, without status migrainosus; F32.9 Major depressive disorder, single episode, unspecified; F41.9 Anxiety disorder, unspecified; Z79.899 Other long term (current) drug therapy; Z90.49 Acquired absence of other specified parts of digestive tract; Z90.89 Acquired absence of other organs; Z90.710 Acquired absence of both cervix and uterus; Z88.9 Allergy status to unspecified drugs, medicaments and biological substances; Z88.6 Allergy status to analgesic agent

== ENCOUNTER → 2021-04-03 | Outpatient (CLI) | payer OTHER ==
[~2021-04-03] MED LIST changes: +KEFLEX250 MG PO
== END ==
LOC: BC 09:41
PROVIDERS: ATTEND Neuromusculoskeletal Medicine & OMM
DX: Z12.31 Encounter for screening mammogram for malignant neoplasm of breast (principal)